=== PATIENT | female | born 1985 | race Two or more races ===

== ENCOUNTER 2024-09-13 10:48 | Emergency (ER) | payer MEDICAID ==
[~2024-09-13] VITALS: Ht 170.2 cm; Wt 104.3 kg
[2024-09-13 13:04] VITALS: BP 123/79; O2SAT 100
== END 2024-09-13 13:04 | disposition home or self-care (01) ==
LOC: ER 10:55
DX: J98.8 Other specified respiratory disorders (principal); B97.89 Other viral agents as the cause of diseases classified elsewhere; R05.9 Cough, unspecified; Z20.822 Contact with and (suspected) exposure to COVID-19
CPT/HCPCS: A4606; A4663